=== PATIENT | male | born 1960 | race Caucasian/White ===

== ENCOUNTER 2016-11-22 07:58 | Emergency (ER) | payer OTHER ==
[~2016-11-22] VITALS: Ht 177.8 cm; Wt 97.5 kg
--- NOTE | 2016-11-22 08:48 | ED GENERAL ADULT ---
History of Present Illness General Chief Complaint: General Adult Stated Complaint: HEADACHE AND NECK PAIN Source: patient Exam Limitations: no limitations Vital Signs & Intake/Output Vital Signs & Intake/Output Vital Signs Date Time Temp Pulse Resp B/P Pulse O2 O2 Flow FiO2 Ox Delivery Rate 11/22 1014 98.0 70 18 142/87 99 Room Air Room Air 11/22 0808 97.8 71 20 166/97 99 Room Air Room Air Allergies Coded Allergies: No Known Allergies (11/22/16) Reconcile Medications Cephalexin (Keflex) 500 MG CAPSULE 1 CAP PO BID CELLULITIS Sulfamethoxazole/Trimethoprim (Bactrim 400-80 MG Tablet) 400 MG-80 MG TABLET 1 TAB PO BID CELLULITIS Triage Note: PT TO ED WITH C/O LEFT HEAD REDNESS AND PAIN X 1 WEEK, NOW NOTICED LUMP TO LEFT NECK 1 DAYS AGO. DENIES FEVER, "I FEEL FINE EXCEPT FOR THE HEAD AND NECK THING". Triage Nurses Notes Reviewed? yes Onset: Gradual Duration: getting worse Timing: recent history Injury Environment: home Severity Numbers: 6 HPI: Patient is a 56-year-old male with a unremarkable past medical history who presents emergency room with a one-week history of left-sided temporal skin irritation tenderness and redness in which patient has been complaining of radiating discomfort down the left lateral aspect of his neck and a tender lymph node. Patient states that approximately 10 years ago similar episode occurred where he had an incision and drainage performed he states the symptoms are very similar. Denies any discharge. Denies any fever chills cough and is otherwise without complaints. (CHAYITO HYATT) Past History Travel History Traveled to [place] past 21 day No Medical History Any Pertinent Medical History? 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 No (CHAYITO HYATT) Review of Systems Review of Systems Constitutional: Reports: no symptoms. EENTM: Reports: no symptoms. Respiratory: Reports: no symptoms. Cardiovascular: Reports: no symptoms. GI: Reports: no symptoms. Genitourinary: Reports: no symptoms. Musculoskeletal: Reports: no symptoms. Skin: Reports: see HPI, erythema. Neurological/Psychological: Reports: no symptoms. Hematologic/Endocrine: Reports: no symptoms. Immunologic/Allergic: Reports: no symptoms. All Other Systems: Reviewed and Negative (CHAYITO HYATT) Physical Exam Physical Exam General Appearance: no apparent distress, alert, comfortable Head: tenderness Comments: Well-developed well-nourished person in no acute distress HEENT: Normal EENT exam, extraocular motion intact, no nystagmus. Pupils equally round and reactive to light and accommodation. Nose is atraumatic. External auditory canal and Tympanic membranes clear. Pharynx normal. No swelling or edema. Neck: Supple, left posterior cervical 1 lymphadenopathy, normal range of motion without pain or tenderness Back: Nontender, no CVA tenderness. Cardiovascular: Regular rate and rhythms no murmurs rubs or gallops, normal JVP Respiratory: Chest nontender. No respiratory distress.breath sounds clear to auscultation bilaterally Abdomen: Soft, nontender nondistended, no appreciable organomegaly. Normal bowel sounds. No ascites Extremity: No edema, no calf tenderness to palpation, normal and equal pulses. Neuro: Alert oriented x3, motor sensory normal, Skin: No appreciable rash on exposed skin, skin is warm and dry. Psych: Mood and affect is normal, memory and judgment is normal. Core Measures ACS in differential dx? No CVA/TIA Diagnosis: No Severe Sepsis Present: No Septic Shock Present: No Diagram Head: 1) 3 cm tender erythema noted, mild fluctuance noted no active discharge skin intact (CHAYITO HYATT) Progress Differential Diagnoses I considered the following diagnoses in my evaluation of the patient: [Abscess, cellulitis, meningitis, cancer, sepsis, erythema migrans,] Plan of Care: Orders Procedure Date/time Status HEAD & NECK CULTURE 11/22 901 Active Microbiology 11/22 901 HEAD/NECK: Head/Neck Culture - ORD 11/22 901 HEAD/NECK: Gram Stain - ORD Patient has concerns of cellulitis to the scalp however incision and drainage was unremarkable. Patient will return to the emergency room in 2 days for wound recheck. (CHAYITO HYATT) Initial ED EKG: none (CHAYITO HYATT) Departure Departure Disposition: HOME OR SELF CARE Condition: Stable Clinical Impression Primary Impression: Cellulitis Secondary Impressions: Cervical lymphadenopathy Referrals: JOSE BARROSO,SAMINA Dominguez (PCP/Family) Additional Instructions: As discussed begin to apply warm compresses to the area. Try to leave the bandage on the has been placed on you in the emergency room at all times and if the bandage falls off replace with the extra bandages provided to the emergency room. Begin the prescription of Bactrim and Keflex as directed for the full course. Return to emergency room in 2 days for wound recheck. If symptoms worsen return to emergency room. Prescriptions are waiting at your pharmacy. BEGIN [id number] ibuprofen for pain and inflammation. Departure Forms: Customer Survey General Discharge Information Prescriptions: Current Visit Scripts Sulfamethoxazole/Trimethoprim (Bactrim 400-80 MG Tablet) 1 TAB PO BID #20 TAB Cephalexin (Keflex) 1 CAP PO BID #20 CAP (CHAYITO HYATT) PA/LAY OUT TECHNICIAN Co-Sign Statement Statement: ED Attending supervision documentation- [] I saw and evaluated the patient. I have also reviewed all the pertinent lab results and diagnostic results. I agree with the findings and the plan of care as documented in the PA's/LAY OUT TECHNICIAN's documentation. x-I have reviewed the ED Record and agree with the PA's/LAY OUT TECHNICIAN's documentation. [] Additions or exceptions (if any) to the PAs/LAY OUT TECHNICIAN's note and plan are summarized below: [] (KRISTY NAVAS DO) Procedures Incision and Drainage Site: LEFT SCALP Blade Size: 11 I & D Procedure: Yes: betadine prep, sterile drapes applied, sterile dressing applied. No: wick placed. Progress: Using Betadine initially I used 5 mL of 1% lidocaine for local anesthesia making a 1 cm incision no purulent discharge was noted gauze and Tegaderm applied no culture was obtained (CHAYITO HYATT) Critical Care Note Critical Care Note Critical Care Time: non-applicable (CHAYITO HYATT)
[2016-11-22] MEDS ORDERED: BACTRIM 400-801 EACH PO (09:11)
[2016-11-22] MEDS ORDERED: KEFLEX500 M1 PO (09:11)
[2016-11-22 10:14] VITALS: BP 142/87
== END 2016-11-22 10:15 ==
LOC: ERH 07:58
DX: L03.811 Cellulitis of head [any part, except face] (principal); R59.1 Generalized enlarged lymph nodes
CPT/HCPCS: 87070

== ENCOUNTER 2016-11-24 07:55 | Emergency (ER) | payer OTHER ==
[~2016-11-24 07:55] MED LIST: BACTRIM 400-801 EACH PO; KEFLEX500 M1 PO
[2016-11-24 08:00] VITALS: BP 163/90
--- NOTE | 2016-11-24 09:35 | ED ANIMAL BITE/WOUND CHECK ---
History of Present Illness General Chief Complaint: Suture Removal/Wound Recheck Stated Complaint: WOUND RECHECK Source: patient Exam Limitations: no limitations Vital Signs & Intake/Output Vital Signs & Intake/Output Vital Signs Date Time Temp Pulse Resp B/P Pulse O2 O2 Flow FiO2 Ox Delivery Rate 11/24 0800 97.6 80 20 163/90 98 Room Air Allergies Coded Allergies: No Known Allergies (11/22/16) Reconcile Medications Cephalexin (Keflex) 500 MG CAPSULE 1 CAP PO BID CELLULITIS Sulfamethoxazole/Trimethoprim (Bactrim 400-80 MG Tablet) 400 MG-80 MG TABLET 1 TAB PO BID CELLULITIS Triage Note: PT PRESENTS TO ER FOR WOUND CHECK. PT STATES HE HAD SOMETHING REMOVED FROM THE TOP OF HIS SCALP AND WAS TOLD TO COME BACK TO HAVE THE AREA CHECKED Triage Nurses Notes Reviewed? yes HPI: Patient presents for evaluation of a wound check for an scalp abscess that was incised and drained in the [facility] emergency Department 3 days ago. He was asked to return for a wound check. Aside from some reactive lymphadenopathy in the left anterior cervical region (that was present ride to the incision and drainage), the patient has no specific complaints including no fever substantial drainage or severe pain. Past History Travel History Traveled to [place] past 21 day No Medical History Any Pertinent Medical History? 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 No Review of Systems Review of Systems Constitutional: Reports: no symptoms. EENTM: Reports: no symptoms. Respiratory: Reports: no symptoms. Cardiovascular: Reports: no symptoms. GI: Reports: no symptoms. Genitourinary: Reports: no symptoms. Musculoskeletal: Reports: no symptoms. Skin: Reports: see HPI. Neurological/Psychological: Reports: no symptoms. Hematologic/Endocrine: Reports: no symptoms. Immunologic/Allergic: Reports: no symptoms. All Other Systems: Reviewed and Negative Physical Exam Physical Exam General Appearance: see below Comments: Gen.: Well-nourished, well-developed, no acute respiratory distress. Head: Normocephalic, I&D site over the left parietal occipital scalp healing well with no signs of cellulitis or recurrence of abscess Eyes: Normal inspection bilaterally Ears: Normal inspection bilaterally Nose: Normal inspection Throat/mouth : Moist mucosa Neck: Supple, full range of motion Lungs: Quiet respirations Back: Normal range of motion Extremities: Normal range of motion grossly Neurologic: Cranial nerves grossly intact, speech is clear Skin: warm and dry Psychiatric: Calm, cooperative, no apparent delusions or hallucinations Progress Differential Diagnosis: abscess, cellulitis Plan of Care: Continue current care Comments: Patient states that the reactive lymph nodes began after the onset of the scalp infection. Patient states he also had a general medical evaluation by his primary care physician about one month ago and was told that there was nothing wrong. The lymphadenopathy is very likely due to the scalp infection and I doubt an underlying lymphatic cancer. Departure Departure Disposition: HOME OR SELF CARE Condition: Stable Clinical Impression Primary Impression: Scalp abscess Referrals: JOSE BARROSO,SAMINA Dominguez (PCP/Family) Additional Instructions: Continue your current management. Follow-up with your primary care physician on Monday for reevaluation. If the reactive lymph nodes on the left side of her neck do not resolve within the next 2 weeks please have a reevaluation by your primary care physician. Return if any concerns or sudden worsening. Thank you for choosing the [facility] Emergency Department for your care. It was a pleasure to serve you today. López Carmona M.D. [facility] Departure Forms: Customer Survey General Discharge Information
== END 2016-11-24 09:50 ==
LOC: ERH 07:55
DX: Z48.01 Encounter for change or removal of surgical wound dressing (principal)
CPT/HCPCS: 99281